=== PATIENT | female | born 1975 | race Caucasian/White ===

== ENCOUNTER 2017-07-29 08:55 | Emergency (ER) | payer SELFPAY ==
[~2017-07-29] VITALS: Ht 162.6 cm; Wt 100.0 kg
[~2017-07-29 08:55] MED LIST: AMOX875 PO; CIPR0.3S AS; LAMO100 PO; LORTA5 PO; PROZ20CA11 PO; PROZ40CA PO
[2017-07-29 09:00] VITALS: BP 121/66; PULSE 89; RESP 18; TEMP 98.1; O2SAT 100
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
[2017-07-29] MEDS ORDERED: PROZ20CA11 PO (09:35)
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
== END 2017-07-29 11:26 | disposition home or self-care (01) ==
LOC: NEPD 08:55
DX: R07.89 Other chest pain (principal); K75.9 Inflammatory liver disease, unspecified; Z87.891 Personal history of nicotine dependence
CPT/HCPCS: 71046; 99283